=== PATIENT | male | born 1960 | race Asian ===

== ENCOUNTER 2024-06-19 11:13 | Outpatient (AMB) | payer OTHER, SELFPAY ==
--- NOTE | 2024-06-19 11:17 | MHC.OFFVIS ---
Vital Signs 06/19/24 11:23 Height 5 ft 4 in Weight 155 lb 10.342 oz BMI 26.7 BP 136/88 Blood Pressure Location Rt brachial Position Sitting Pulse 68 Pulse Source Pulse Oximeter Pulse Oximetry (%) 96 Oxygen Delivery Method Room Air Intake Visit Reasons: Colonoscopy Screening Intake Note: NEW PATIENT Jacoby presents in office today for a scheduled initial assessment / colo scrn. Prior hx of colo/egd? 2011 (polyps reported per referral, unspecified.) Pt has also had EGD as of 2020 via [facility]? Pt saw GI at [facility] within the last year? Pt states that he was not satisfied with the results that he received from other GIs, therefore, he is being evaluated by us for second opinion. Pt states that his last colo was 5-7 years ago. Pt states that this was performed through [facility]. Polypectomy performed. Meds and Allergies reviewed? Y Any significant concerns or questions? Pt has dietary questions but also is experiencing abd cramping, diarrhea, distention, bloating. Pt states that he has recently cut out alcohol which he states has helped but has not resolved the issue. Pharmacy verified? [facility]. Chief Operating Officer Required: No Allergies No Known Allergies Allergy (Verified 06/18/24 11:46) HPI HPI Colonoscopy Screening: Details: 63 year old? male with past medical history of IBS, GERD, dyspepsia and diverticulosis is here today for 2nd opinion. Patient was seen by GI at [facility] back in August. Started with frequent postprandial loose stools, bloating and cramping. Had colonoscopy in 2019 and was told to repeat in 10 years. Patient requested to have another colonoscopy as his symptoms got worse specially in the last year or so. Patient change his diet no longer is eating certain food and still continues with symptoms. Patient denies any nausea or vomiting. Patient reports that his daughter was diagnosed with Crohn's disease. Patient denies any melena, hematochezia, unintentional weight loss or ribbon like stools. Patient reports acid reflux with occasional dyspepsia without dysphagia or odynophagia. Epigastric pain postprandially depending on what he eats. Patient no longer drinking hard liquor as this was causing him epigastric pain as well. [facility] Medical History (Updated 06/19/24 @ 13:32 by Vira Bonilla, BOBBIN FIXER-) Family history of Crohn's disease Diverticulosis GERD (gastroesophageal reflux disease) Physical Exam Vital Signs: Last Vital Signs Pulse 68 06/19/24 11:23 BP 136/88 06/19/24 11:23 Pulse Ox 96 06/19/24 11:23 Oxygen Delivery Method Room Air 06/19/24 11:23 BMI result Body Mass Index 26.7 Assessment & Plan Assessment & Plan (1) GERD (gastroesophageal reflux disease): Code(s): K21.9 - Gastro-esophageal reflux disease without esophagitis Category: Medical Qualifiers: Esophagitis presence: esophagitis presence not specified Qualified Code(s): K21.9 - Gastro-esophageal reflux disease without esophagitis (2) Diverticulosis: Code(s): K57.90 - Diverticulosis of intestine, part unspecified, without perforation or abscess without bleeding Category: Medical (3) Family history of Crohn's disease: Code(s): Z83.79 - Family history of other diseases of the digestive system Category: Medical (4) Postprandial diarrhea: Code(s): K52.9 - Noninfective gastroenteritis and colitis, unspecified (5) Postprandial epigastric pain: Code(s): R10.13 - Epigastric pain Plan Message sent to surgical schedulers to book procedure for patient. Will rule out inflammatory bowel disease. H pylori testing done in the office. Patient reports that he never was retested after treatment. Continues with epigastric pain. He will go for upper endoscopy to rule out gastritis, esophagitis, duodenitis, gastric or peptic ulcer. Will check lipase and transglutaminase as well as vitamin-D, B12 and folate. Thyroid study ordered as well. Patient follow-up in the office in 3 months, sooner on as needed basis. He is agreeable to this plan and verbalizes understanding of instructions. He was given the opportunity to ask questions and all questions answered. Records from [facility] reviewed. Last visit with GI specialty from 09/01/2023 Thank you for allowing me to participate in his care Orders: Orders C Reactive Protein Today K58.9 - Irritable bowel syndrome, unspecified Lipase Today R10.9 - Unspecified abdominal pain Vitamin D 25-OH (D2 and D3) Today E55.9 - Vitamin D deficiency, unspecified H Pylori Breath Test Today K21.9 - Gastro-esophageal reflux disease without esophagitis Transglutaminase IgA Today R10.9 - Unspecified abdominal pain TSH reflex Free T4 Today K59.00 - Constipation, unspecified Vitamin B12 and Folate Today R19.7 - Diarrhea, unspecified Medications: New famotidine (Pepcid) 20 mg PO BEDTIME 30 tabs 3RF K21.9 - Gastro-esophageal reflux disease without esophagitis Coding Level of Care Code New Pt Level 4 (87853) Diagnoses Gastroesophageal reflux disease, unspecified whether esophagitis present K21.9 Esophagitis presence: esophagitis presence not specified Diverticulosis K57.90 Family history of Crohn's disease Z83.79 Postprandial diarrhea K52.9 Postprandial epigastric pain R10.13 Time Spent (min) 45 Comment 30 minutes spent with patient and additional 15 minutes spent reviewing his records
[2024-06-19 11:23] VITALS: BP 136/88; PULSE 68; O2SAT 96; BMI 26.7
--- OUTSIDE RECORDS SUMMARY | 2024-06-20 01:34 | XMS_ITS | Continuity of Care Document ---
Author Organization [facility] Primary [address] Address [address] [place] [address]- Care Team Providers Care Sustain Engineer Name Role Phone Jesus Cintron MD Primary Care Physician [phone] [id number] Date(s): 05/17/24 - 06/16/24 [facility] [place] [address] [place], [place] [address] Encounter Type: Triage Allergies, Adverse Reactions, Alerts No Known Allergies Medications losartan 50 mg oral tablet 1 tablet = 50 mg, By Mouth, Daily, # 90 tablet, 0 Refills, Maintenance, 05/17/24 6:34:00 PM EST, Tablet, [id number], Partial fill upon patient request if the prescription is for a schedule IIopioid drug., 165, cm, 01/22/24 8:08:00 EDT, Height Start Date: 05/17/24 Status: Ordered Quantity: 90.0 Unit: tablet Repeat number: 1 methylphenidate 5 mg oral tablet 5 mg, 1, tablet, By Mouth, 3 times a day, # 90 tablet, Refills 0, Tot. Refills 0, Maintenance, 01/22/24 8:51:00 AM EDT, Route to Pharmacy Electronically, [id number], Partial fill upon patientrequest if the prescription is for a schedule II opioid drug., 165, cm, 01/22/24 8:08:00 EDT, Height Start Date: 01/22/24 Status: Ordered Quantity: 90.0 Unit: tablet Repeat number: 1 Indication: Attention-deficit hyperactivity disorder, unspecified type sildenafil 100 mg oral tablet 1 tablet = 100 mg, By Mouth, Daily, 1 hour before sexual activity, # 90 tablet, 1 Refills, Maintenance, 01/22/24 8:52:00 AM EDT, Tablet, [facility], Partial fill upon patient request if the prescription is for a schedule II opioid drug., 165, cm, 01/22/24 8:08:00 EDT, Height Start Date: 01/22/24 Stop Date: 07/20/24 Status: Ordered Quantity: 90.0 Unit: tablet Repeat number: 2 Indication: Erectile dysfunction due to diseases classified elsewhere Problem List Condition Confirmation Course Effective Dates Status H ealth Status Informant Alcohol abuse Confirmed Active Anal fissure Confirmed Active ADHD Confirmed Active Benign colonic polyp Confirmed Active Carpal tunnel syndrome of right wrist Confirmed Active Depression, unspecified Confirmed Active Essential hypertension Confirmed Active Family history of Alzheimer's disease Confirmed Active GERD (gastroesophageal reflux disease) Confirmed Active Gluten intolerance Confirmed Active Helicobacter pylori [H. pylori] as the cause of diseases classified elsewhere Confirmed Active IBS (irritable bowel syndrome) Confirmed Active Lateral epicondylitis, right elbow Confirmed Active Maxillary sinusitis Confirmed Active Memory loss or impairment Confirmed Active Mixed hyperlipidemia Confirmed Active Moderate asthma Confirmed Active Osteoarthritis of left hand Confirmed Active Thenar muscle atrophy of left hand Confirmed Active Libido, decreased Confirmed Active Rupture of Achilles tendon, traumatic Confirmed Active Erectile disorder due to medical condition in male Confirmed Active Sleep apnea Confirmed Active Sleep disorder Confirmed Active Social History Social History Type Response Tobacco Use: 4 or less cigar ettes(less than 1/4 pack)/day in last 30 days. Other: socially. Sex Sex Representation Male (finding) Patient Care team information Care Team Personnel Name: Jesus Cintron MD Position: [facility] Physician - Primary Care Member Role: PCP Address: [address] [place] [address] [place] [address] [place] Telecom: Care Team Related Persons Name: SHARIF ARMAS Insurance Providers Guarantor name: CHRISTINE Health Plan Information #: 1 Payer: [employer] FF NON P HMO Member Number: NA Policy Number: NA Group Number: NA
--- OUTSIDE RECORDS SUMMARY | 2024-06-20 01:34 | XMS_ITS | Continuity of Care Document ---
Author Organization [facility] [address] Address [address] [place] [address]- Care Team Providers Care Tugboat Mate Name Role Phone Jesus Cintron MD Primary Care Physician Encounter [facility] NBR [id number] Date(s): 05/17/24 - 06/16/24 [facility] [place] [address] [place], [place] [address] Encounter Type: Triage Allergies, Adverse Reactions, Alerts No Known Allergies Medications losartan 50 mg oral tablet 1 tablet = 50 mg, By Mouth, Daily, # 90 tablet, 0 Refills, Maintenance, 05/17/24 6:34:00 PM EST, Tablet, [facility], Partial fill upon patient [...] 8:51:00 AM EDT, Route to Pharmacy Electronically, [facility] # [facility], Partial fill upon patientrequest [...] Team Personnel Name: Jesus Cintron MD Position: [facility] Physician - Primary Care Member Role: PCP Address: [address] [place] [address] [place] [address] [place] Telecom: Care Team Related Persons Name: SHARIF ARMAS Insurance Providers Guarantor name: CHRISTINE Health Plan Information #: 1 Payer: [employer] FF NON P HMO Member Number: NA Policy Number: NA Group Number: NA
--- OUTSIDE RECORDS SUMMARY | 2024-06-20 01:34 | XMS_ITS ---
Author Organization [facility] Address [address] [facility] [address] [place] [address] Care Team Providers Care Pipe Supervisor Name Role Phone JUAN BUSH Primary Care Provider REASON FOR VISIT refill Medications Medication SIG (Take, Route, Frequency, Duration) Notes Start Date End Date Status Losartan Potassium 50 MG 1 tablet Orally Once a day for 90 days Active Encounters Encounter Location Date Provider Diagnosis [facility] [address] [address] [facility] [address] [place] [address] 03/21/2023 JUAN BUSH Plan Of Treatment Medication Medication Name Sig Start Date Stop Date Notes Losartan Potassium 50 MG 1 tablet Orally Once a day for 90 days Progress Notes * Sha LORENZANALibbyOB:1960 (62 yo M)Acc No.[id number]:03/21/2023 Patient:?Jacoby Lorenzana :1960???Age:62 Y???Sex:Male Address:[address], [place], [address] * Refills? Refill Losartan Potassium Tablet, 50 MG, Orally, 90 Tablet, 1 tablet, Once a day, 90 days, Refills=1 * true * Date:? Generated for Bry ceja/Lexi/eTransmitting on:?06/20/2024 01:34 AM EST
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
--- OUTSIDE RECORDS SUMMARY | 2024-06-20 01:35 | XMS_ITS ---
Author Name [facility] Organization Unknown History of Medication Use Medication Directions Dispensed Refills Start Date End Date Stat us meloxicam (MOBIC) 15 MG tablet Take 1 tablet (15 mg total) by mouth daily. 08/19/2023 active Problems Problem Status Onset Date Problem Type Date of Resoluti on Source Pain in both knees, unspecified chronicity active EncounterDiagnosisAct CCT
--- OUTSIDE RECORDS SUMMARY | 2024-06-20 01:35 | XMS_ITS | Patient Health Record ---
Author Organization [facility] Address [address] [place] [id number] Care Team Providers Care Intramural Director Name Role Phone JUAN BUSH Primary Care Provider Allergies No Known Allergies Reason For Referral No Information Medications Medication SIG (Take, Route, Frequency, Duration) Notes Start Date End Date Status traZODone HCl 50 MG 1 tablet at bedtime as needed Orally at bedtime for 90 days 10/03/2018 Not-Taking Cephalexin 500 MG Oral Twice daily for 7 TAKE 1 CAPSULE TWICE DAILY. 07/08/2015 Not-Taking Prevpac - TAKE DIRECTED Orally BID for 14 days 06/01/2020 Not-Taking Losartan Potassium 50 MG 1 tablet Orally Once a day for 90 days Active Lansoprazole 30 MG 1 capsule before a meal Orally Twice a day for 14 days 06/02/2020 Active Losartan Potassium-HCTZ 50-12.5 MG 1 tablet Orally Once a day for 90 days 03/31/2016 Not-Taking Ciprodex 0.3-0.1 % Otic Twice daily for 0 INSTILL 3 DROPS IN AFFECTED EAR(S) TWICE DAILY. 07/08/2015 Not-Taking Losartan Potassium 100 MG 1 tablet Orally Once a day for 90 day(s) 05/12/2016 Not-Taking Immunizations Vaccine Route Administration Date Status Comme nts DTaP IM Intramuscular 10/18/2011 Administered MIG_SI D-Immunization Date :18Oct2011 03:02PM Social History Tobacco Use: Social History Observation [...] Are you an other tobacco user? Yes Section Notes: Marital Hx: Got to Nevaeh Laughlin at age 28 yr She was 18 and a beauty pageant [employer] Dated and got at age 28 yr . 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 [employer] Lives in [place] with son Gerrado born with cleft lip. 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 [employer] on [employer]. Remarried Feb 20 2005 to Katherine . She rodriguez 3 children ANPU Randolph, Adin frazier Pharmacist(my pt) and Viky Parker(psychologist) Upset as daughter Silvana 26 yr from first Nevaeh Laughlin ( her Isael is Frank De La Cruz brother)is getting and is not asking him to walk her to the aisle. Complaining of decreased concentration and short term memeory loss. Has Alzheimers in father, his sister and his father. They all from AZD. His father 2016 from dementia.. Lives with his mother. Sisters and brother have hyperthyroidism.2 sister and brother had cerebral vascular malformation and had surgery All had headaches Marital Hx: Got to Nevaeh Laughlin at age 28 yr She was 18 and a beauty pageant [employer] Dated and got at age 28 yr . 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 [employer] Lives in [place] with son Gerardo born with cleft lip. 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 [employer] on [address]. Remarried Feb 20 2005 to Katherine . She rodriguez 3 children ANUP Randolph, Adin frazier Pharmacist(my pt) and Viky Parker(psychologist) Upset as daughter Silvana 26 yr from first Nevaeh Laughlin ( her Isael is Frank De La Cruz brother)is getting and is not asking him to walk her to the aisle. Complaining of decreased concentration and short term memeory loss. Has Alzheimers in father, his sister and his father. They all from AZD. His father 2016 from dementia.. Lives with his mother. Sisters and brother have hyperthyroidism.2 sister and brother had cerebral vascular malformation and had surgery All had headaches Marital Hx: Got to Nveaeh Laughlin at age 28 yr She was 18 and a beauty pageant [employer] Dated and got at age 28 yr . 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 [employer] Lives in [place] with son Gerardo born with cleft lip. 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 [employer] on [employer]. Remarried Feb 20 2005 to Katherine . She rodriguez 3 children ANUP Randolph, Adin frazier Pharmacist(my pt) and Viky Parker(psychologist) Upset as daughter Silvana 26 yr from first Nevaeh Laughlin ( her Isael is Frank De La Cruz brother)is getting and is not asking him to walk her to the aisle. Complaining of decreased concentration and short term memeory loss. Has Alzheimers in father, his sister and his father. They all from AZD. His father 2016 from dementia.. Lives with his mother. Sisters and brother have hyperthyroidism.2 sister and brother had cerebral vascular malformation and had surgery All had headaches Marital Hx: Got to Nevaeh Laughlin at age 28 yr She was 18 and a beauty pageant [employer] Dated and got at age 28 yr . 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 [employer] Lives in [place] with son Gerardo born with cleft lip. 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 [employer] [address]. Remarried Feb 20 2005 to Katherine . She rodriguez 3 children ANUP Randolph, Adin frazier Pharmacist(my pt) and Viky Parker(psychologist) Upset as daughter Silvana 26 yr from first Nevaeh Laughlin ( her Isael is Frank De La Cruz brother)is getting and is not asking him to walk her to the aisle. Complaining of decreased concentration and short term memeory loss. Has Alzheimers in father, his sister and his father. They all from AZD. His father 2016 from dementia.. Lives with his mother. Sisters and brother have hyperthyroidism.2 sister and brother had cerebral vascular malformation and had surgery All had headaches Marital Hx: Got to Nevaeh Laughlin at age 28 yr She was 18 and a beauty pageant [employer] Dated and got at age 28 yr . 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 [employer] Lives in [place] with son Gerardo born with cleft lip. 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 [employer] [address]. Remarried Feb 20 2005 to Katherine . She rodriguez 3 children ANUP Randolph, Adin frazier Pharmacist(my pt) and Viky Parker(psychologist) Upset as daughter Silvana 26 yr from first Nevaeh Laughlin ( her Isael is Frank De La Cruz brother)is getting and is not asking him to walk her to the aisle. Complaining of decreased concentration and short term memeory loss. Has Alzheimers in father, his sister and his father. They all from AZD. His father 2016 from dementia.. Lives with his mother. Sisters and brother have hyperthyroidism.2 sister and brother had cerebral vascular malformation and had surgery All had headaches Upset as daughter Silvana 26 yr from first Nevaeh Laughlin ( her Isael is Frank De La Cruz brother)is getting and is not asking him to walk her to the aisle. Complaining of decreased concentration and short term memeory loss. Has Alzheimers in father, his sister and his father. They all from AZD. His father 2016 from dementia.. Lives with his mother. Sisters and brother have hyperthyroidism.2 sister and brother had cerebral vascular malformation and had surgery All had headaches Upset as daughter Silvana 26 yr from first Nevaeh Laughlin ( her Isael is Frank De La Cruz brother)is getting and is not asking him to walk her to the aisle. Complaining of decreased concentration and short term memeory loss. Has Alzheimers in father, his sister and his father. They all from AZD. His father 2016 from dementia.. Lives with his mother. Sisters and brother have hyperthyroidism.2 sister and brother had cerebral vascular malformation and had surgery All had headaches Upset as daughter Silvana 26 yr from first Nevaeh Laughlin ( her Isael is Frank De La Cruz brother)is getting and is not asking him to walk her to the aisle. Complaining of decreased concentration and short term memeory loss. Has Alzheimers in father, his sister and his father. They all from AZD. His father 2016 from dementia.. Lives with his mother. Sisters and brother have hyperthyroidism.2 sister and brother had cerebral vascular malformation and had surgery All had headaches Upset as daughter Silvana 26 yr from first Nevaeh Laughlin ( her Isael is Frank De La Cruz brother)is getting and is not asking him to walk her to the aisle. Complaining of decreased concentration and short term memeory loss. Has Alzheimers in father, his sister and his father. They all from AZD. His father 2016 from dementia.. Lives with his mother. Sisters and brother have hyperthyroidism.2 sister and brother had cerebral vascular malformation and had surgery All had headaches Upset as daughter Silvana 26 yr from first Nevaeh Laughlin ( her Isael is Frank De La Cruz brother)is getting and is not asking him to walk her to the aisle. Complaining of decreased concentration and short term memeory loss. Has Alzheimers in father, his sister and his father. They all from AZD. His father 2016 from dementia.. Lives with his mother. Sisters and brother have hyperthyroidism.2 sister and brother had cerebral vascular malformation and had surgery All had headaches Upset as daughter Silvana 28 yr from first Nevaeh Laughlin ( her Isael is Frank De La Cruz brother)is getting and is not asking him to walk her to the aisle. Complaining of decreased concentration and short term memeory loss. Has Alzheimers in father, his sister and his father. They all from AZD. His father 2016 from dementia.. Lives with his mother. Sisters and brother have hyperthyroidism.2 sister and brother had cerebral vascular malformation and had surgery All had headaches Upset as daughter Silvana 26 yr from first Nevaeh Laughlin ( her Isael is Frank De La Cruz brother)is getting and is not asking him to walk her to the aisle. Complaining of decreased concentration and short term memeory loss. Has Alzheimers in father, his sister and his father. They all from AZD. His father 2016 from dementia.. Lives with his mother. Sisters and brother have hyperthyroidism.2 sister and brother had cerebral vascular malformation and had surgery All had headaches Upset as daughter Silvana 26 yr from first Nevaeh Laughlin ( her Isael is Frank De La Cruz brother)is getting and is not asking him to walk her to the aisle. Complaining of decreased concentration and short term memeory loss. Has Alzheimers in father, his sister and his father. They all from AZD. His father 2016 from dementia.. Lives with his mother. Sisters and brother have hyperthyroidism.2 sister and brother had cerebral vascular malformation and had surgery All had headaches Upset as daughter Silvana 26 yr from first Nevaeh Laughlin ( her Isael is Frank De La Cruz brother)is getting and is not asking him to walk her to the aisle. Complaining of decreased concentration and short term memeory loss. Has Alzheimers in father, his sister and his father. They all from AZD. His father 2016 from dementia.. Lives with his mother. Sisters and brother have hyperthyroidism.2 sister and brother had cerebral vascular malformation and had surgery All had headaches Upset as daughter Silvana 26 yr from first Nevaeh Laughlin ( her Isael is Frank De La Cruz brother)is getting and is not asking him to walk her to the aisle. Complaining of decreased concentration and short term memeory loss. Has Alzheimers in father, his sister and his father. They all from AZD. His father 2016 from dementia.. Lives with his mother. Sisters and brother have hyperthyroidism.2 sister and brother had cerebral vascular malformation and had surgery All had headaches Upset as daughter Silvana 26 yr from first Nevaeh Laughlin ( her Isael is Frank De La Cruz brother)is getting and is not asking him to walk her to the aisle. Complaining of decreased concentration and short term memeory loss. Has Alzheimers in father, his sister and his father. They all from AZD. His father is alive and is 82 yrs. Lives with his mother. Sisters and brother have hyperthyroidism.2 sister and brother had cerebral vascula malformation and had surgery All had headaches Upset as daughter Silvana 26 yr from first Nevaeh Laughlin ( her Isael is Frank De La Cruz brother)is getting and is not asking him to walk her to the aisle. Complaining of decreased concentration and short term memeory loss. Has Alzheimers in father, his sister and his father. They all from AZD. His father is alive and is 82 yrs. Lives with his mother. Sisters and brother have hyperthyroidism.2 sister and brother had cerebral vascula malformation and had surgery All had headaches Upset as daughter Silvana 26 yr from first Nevaeh Laughlin ( her Isael is Frank De La Cruz brother)is getting and is not asking him to walk her to the aisle. Complaining of decreased concentration and short term memeory loss. Has Alzheimers in father, his sister and his father. They all from AZD. His father 2016 from dementia.. Lives with his mother. Sisters and brother have hyperthyroidism.2 sister and brother had cerebral vascular malformation and had surgery All had headaches Upset as daughter Silvana 26 yr from first Nevaeh Laughlin ( her Isael is Frank De La Cruz brother)is getting and is not asking him to walk her to the aisle. Complaining of decreased concentration and short term memeory loss. Has Alzheimers in father, his sister and his father. They all from AZD. His father 2016 from dementia.. Lives with his mother. Sisters and brother have hyperthyroidism.2 sister and brother had cerebral vascular malformation and had surgery All had headaches Upset as daughter Silvana 26 yr from first Nevaeh Laughlin ( her Isael is Frank De La Cruz brother)is getting and is not asking him to walk her to the aisle. Complaining of decreased concentration and short term memeory loss. Has Alzheimers in father, his sister and his father. They all from AZD. His father 2016 from dementia.. Lives with his mother. Sisters and brother have hyperthyroidism.2 sister and brother had cerebral vascular malformation and had surgery All had headaches Upset as daughter Silvana 26 yr from first Nevaeh Laughlin ( her Isael is Frank De La Cruz brother)is getting and is not asking him to walk her to the aisle. Complaining of decreased concentration and short term memeory loss. Has Alzheimers in father, his sister and his father. They all from AZD. His father 2016 from dementia.. Lives with his mother. Sisters and brother have hyperthyroidism.2 sister and brother had cerebral vascular malformation and had surgery All had headaches Upset as daughter Silvana 26 yr from first Nevaeh Laughlin ( her Isael is Frank De La Cruz brother)is getting and is not asking him to walk her to the aisle. Complaining of decreased concentration and short term memeory loss. Has Alzheimers in father, his sister and his father. They all from AZD. His father 2016 from dementia.. Lives with his mother. Sisters and brother have hyperthyroidism.2 sister and brother had cerebral vascular malformation and had surgery All had headaches Marital Hx: Got to Nevaeh Laughlin at age 28 yr She was 18 and a beauty pageant [employer] Dated and got at age 28 yr . 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 Lives in [place] with son Gerardo born with cleft lip. 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 [employer] on [employer]. Remarried Feb 20 2005 to Katherine . She rodriguez 3 children ANUP Randolph, Adin frazier Pharmacist(my pt) and Viky Parker(psychologist) Upset as daughter Silvana 26 yr from first Nevaeh Laughlin ( her Isael is Frank De La Cruz brother)is getting and is not asking him to walk her to the aisle. Complaining of decreased concentration and short term memeory loss. Has Alzheimers in father, his sister and his father. They all from AZD. His father 2016 from dementia.. Lives with his mother. Sisters and brother have hyperthyroidism.2 sister and brother had cerebral vascular malformation and had surgery All had headaches Upset as daughter Silvana 26 yr from first Nevaeh Laughlin ( her Isael is Frank De La Cruz brother)is getting and is not asking him to walk her to the aisle. Complaining of decreased concentration and short term memeory loss. Has Alzheimers in father, his sister and his father. They all from AZD. His father 2015 from dementia.. Lives with his mother. 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 However he has noticed bloating and epigastric discomfort for past 2-3 days Discussed with him the possibilty of resistance to the previous treatment . He is agreeable to start on another course for salvage therapy. Reviewed [email or web address] Textbook. Decided to wait for a couple of weeks, get Urea breath test or stool antigen test and if positive, treat with Levofloxacin based theerapy with amoxillin and PPI. I called him and discussed He is drinking [place] for 4 days Told to use Probiotics Wants to wait 4 weeks and then will see me on televist Problem 4282179 Helicobacter pylori [H. pylori] as the cause of diseases classified elsewhere (B96.81) Active confirmed 06/01/20- suspected from symptoms and history. will be difficult to get breath test, prefers to be treated empericaly patient going to get H. Pylori antibody test completed and Prevpac prescribed. Also will order labs to check inflammatory markers to rule out autoimmune causes. Follow up in 3 weeks to determine if prevpac working. If no improvement will treat for IBS, the will refer to GI 4.30 pm Labs came back Had H. Pylori positive antibody Will call him and let him know. 06/23/2020- reinfection, initial treatment failure. will start patient on next round of medications. follow up in 1 month 02/24/21 States he feels he has the same symptoms Wants to try Prevpak again Sent to [facility]. 07/14/21 Had EGD on 07/01/21 and started again on Prevpak on 07/12/21 4th time he has been treated! Problem Mixed hyperlipidemia (766837909) Mixed hyperlipidemia (E78.2) Active confirmed Problem Otitis media (92461723) Otitis media, unspecified, unspecified ear (H66.90) Active confirmed Problem 639762972842999 Lateral epicondylitis, right elbow (M77.11) Active confirmed Will start on Meloxicam for 3 weeks Will call me if not better Problem 18204195 Insect bite (nonvenomous) of abdominal wall, initial encounter (S30.861A) Active confirmed Will give Doxycycline 1000 mg single dose today Problem 746392169 Bitten or stung by nonvenomous insect and other nonvenomous arthropods, initial encounter (W57.XXXA) Active confirmed Problem 322683784 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) Active confirmed Problem 29461369 Alcohol abuse (F10.10) Active confirmed Problem Gastroesophageal reflux disease (532323423) GERD (gastroesophage al reflux disease) (K21.9) Active confirmed Problem 10011154 Sleep disorder (G47.9) Active confirmed Uses Trazadone prn 06/01/2020- doing well, no issues with sleep currently, intermitent throughut life Problem 125774969 Erectile disorder due to medical condition in male (N52.1) Active confirmed Will give sildenafil vis [facility] from [facility] Problem Gluten intolerance (3889789227) Gluten intolerance (K90.0) Active confirmed Problem 1523717033769275 Left ear pain (H92.02) Active confirmed Will ask patient to come in for a physical check Problem 33612575 Essential hypertension (I10) Active confirmed Started on Losartan Not compliant Urged him to do so Problem 2558707 Libido, decreased (R68.82) Active confirmed Problem 556119313 Benign colonic polyp (K63.5) Active confirmed Had colonoscopy at age [address] Martinez Will need another one Problem 581692472 Annual physical exam (Z00.00) Active confirmed In good health . Labs done i Aug 2019 Excellent . No new issues Probably had Covid infection in September. 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 Will try venlafaxine and will refer to [facility] for [facility]selling and see me in 2-3 weeks Told to abstain from alcohol. Stopped alcohol and has lost weight Problem 27294845 Carpal tunnel syndrome of right wrist (G56.01) Active confirmed Problem Shoulder joint pain (427057202) Left shoulder pain, unspecified chronicity (M25.512) Active confirmed Saw Dr Govea in November 2015 Told he will need arthroscopic surgery to clean up the calcium and repair the rotator cuff Plans to have it done this year. 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 Never took inhalers and not diagnosed Problem 416489628018796 Osteoarthritis of left hand, unspecified osteoarthritis type (M19.042) Active confirmed Had EMG and NCV done by Dr Kumar. No neuropathy. All from OA. Problem 631744727 History of essential hypertension (Z86.79) Active confirmed Was noncompliant Off meds for months . I have decided to stop his meds and take off the diagnoses of HTN as his BP was 120/85 He has excellent HDL of 129 and no family history of CAD and HTB or CVA Leads a very physical lifestyle Problem 505627064 Memory loss or impairment (R41.3) Active confirmed Has noticed it Cannot remeber names , faces of people. Has to keep notes Agrees to be tested. Problem 02363160107538085 Bacterial conjunctivitis of right eye (H10.9) Active confirmed Will give antibiotics locally and orally. Problem 86968494 Maxillary sinusitis, unspecified chronicity (J32.0) Active confirmed Will treat with cephalexin Problem 430142709 Acute back pain, unspecified back location, unspecified back pain laterality (M54.9) Active confirmed Will gve percocets and cyclobenzapri ne.. Got scripts but didnt use it . No time to work out Told to get up early and go to the gym and start his work out. Problem 61669574 Left otitis media with effusion (H65.92) Active confirmed Will treat with medrol and ABX and cough syrup. Problem Disease caused by Severe acute respiratory syndrome coronavirus 2 (disorder) (899276942) COVID-19 determined by clinical diagnostic criteria (U07.1) Active confirmed 07/14/21 Symptomatic since 07/11/21 . Congested and coughing but afebrile Not short of breath Eas exposed to Covid positive friends. On antibiotics for his H. Pylori infection Will get a pulse oximeter and monitor his O2 level. Will check on him tomorrow. 07/15/21 feeling much better since yesterday, cough still productive but not as severe, oxygen 95% picked up oxygen monitor. he will continue to stay away from o not get her sick. 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 feeling much better. advised to continue monitoring oxygen however, if change or declining to call the office. of oxygen below 90s to seek ed Plan Of Treatment Pending Test Test Name Order Date X ray : Hand, left 08/22/2016 X ray : Hand, right 08/22/2016 Lipid Panel 11/23/2021 Chem-Comprehensive 11/23/2021 H PYLORI BREATH TEST 10/07/2022 CBC WITH AUTO DIFF 10/07/2022 COMPREHENSIVE METABOLIC PANEL 10/07/2022 HEPATITIS C VIRUS SCREEN 10/07/2022 LIPID PROFILE 10/07/2022 MEASLES PROFILE 10/07/2022 URINALYSIS 10/07/2022 PSA, SCREEN 10/07/2022 URINALYSIS, COMPLETE 11/23/2021 Future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
== END 2024-06-19 12:46 | disposition home or self-care (01) ==
PROVIDERS: PCP Internal Medicine; Visit Provider Nurse Practitioner Family
DX: K21.9 Gastro-esophageal reflux disease without esophagitis (principal); K57.90 Diverticulosis of intestine, part unspecified, without perforation or abscess without bleeding; Z83.79 Family history of other diseases of the digestive system; K52.9 Noninfective gastroenteritis and colitis, unspecified; R10.13 Epigastric pain
CPT/HCPCS: 99204

== ENCOUNTER 2024-06-19 11:13 | Outpatient (REF) | payer OTHER, SELFPAY ==
[2024-06-19 13:55] LABS: C Reactive Protein < 0.10 mg/dL (< or = 0.50); Lipase 71 U/L (8-78)
[2024-06-19 14:15] LABS: TSH reflex Free T4 2.32 uIU/mL (0.32-4.0)
[2024-06-19 14:26] LABS: Folate 12.8 ng/mL (> or = 4.0); Vitamin B12 344 pg/mL (200-900)
[2024-06-20 15:49] LABS: Transglutaminase IgA <1.0 U/mL
[2024-06-23 17:29] LABS: Vitamin D 25-OH, D2 <4 ng/mL; Vitamin D 25-OH, D3 32 ng/mL; Vitamin D 25-OH, Total 32 ng/mL (30-100)
== END 2024-06-19 11:14 | disposition home or self-care (01) ==
LOC: HO.LAB 11:13
PROVIDERS: PCP Internal Medicine; Visit Provider Nurse Practitioner Family
DX: R10.9 Unspecified abdominal pain (principal); E55.9 Vitamin D deficiency, unspecified; K59.00 Constipation, unspecified; K58.9 Irritable bowel syndrome, unspecified; R19.7 Diarrhea, unspecified
CPT/HCPCS: 36415; 82306; 82607; 82746; 83013; 83690; 84443; 86140; 86364

== ENCOUNTER 2024-09-09 10:18 | Outpatient (AMB) | payer OTHER, SELFPAY ==
--- NOTE | 2024-09-09 10:20 | A.OFFVIS_ITS ---
Vital Signs 09/09/24 10:29 Height 5 ft 4 in Weight 162 lb 11.218 oz BMI 27.9 BP 144/92 H Blood Pressure Location Rt brachial Position Sitting Pulse 58 Pulse Source Pulse Oximeter Pulse Oximetry (%) 97 Oxygen Delivery Method Room Air Intake Visit Reasons: 3 mos FUV Intake Note: ESTABLISHED PATIENT for GERD mgmt. Re address colo/egd. Chief Complaint; Pt denies any GI concerns at this time. Pt states that his GERD is well controlled with diet and he has stopped taking the famotidine. No additional notes at this time. Coupler Required: No Accompanied by: Self / Same As Patient Allergies No Known Allergies Allergy (Verified 09/09/24 10:22) HPI HPI 3 mos FUV: Details: LAST VISIT GERD (gastroesophageal reflux disease) Diverticulosis Family history of Crohn's disease Postprandial diarrhea Postprandial epigastric pain Plan Message sent to surgical schedulers to book procedure for patient. Will rule out inflammatory bowel disease. H pylori testing done in the office. Patient reports that he never was retested after treatment. Continues with epigastric pain. He will go for upper endoscopy to rule out gastritis, esophagitis, duodenitis, gastric or peptic ulcer. Will check lipase and transglutaminase as well as vitamin-D, B12 and folate. Thyroid study ordered as well. Patient follow-up in the office in 3 months, sooner on as needed basis. He is agreeable to this plan and verbalizes understanding of instructions. He was given the opportunity to ask questions and all questions answered. ? Records from [facility] reviewed. Last visit with GI specialty from 09/01/2023 ? Thank you for allowing me to participate in his care Orders Orders C Reactive Protein Today K58.9 Lipase Today R10.9 Vitamin D 25-OH (D2 and D3) Today E55.9 H Pylori Breath Test Today K21.9 Transglutaminase IgA Today R10.9 TSH reflex Free T4 Today K59.00 Vitamin B12 and Folate Today R19.7 Medications New famotidine (Pepcid) 20 mg PO BEDTIME 30 tabs 3RF K21.9 TODAY'S VISIT Patient is here today for follow-up and to discuss going for colonoscopy and upper endoscopy. Patient reports that he stops taking the famotidine as it was making him feel worse. Patient reports that he changed his diet and is feeling better. Occasional acid reflux depending on what he eats. Patient is trying to stay away from culprits. No issues with anesthesia in the past. No history of sleep apnea. Not on any anticoagulation medication. No family history of CRC. Lost colonoscopy over 5 years ago. [facility] Medical History Family history of Crohn's disease Diverticulosis GERD (gastroesophageal reflux disease) Review of Systems Const Denies weight gain and Denies weight loss ENT Reports no additional complaints, Denies dysphagia and Denies odynophagia Card Reports no additional complaints Resp Reports no additional complaints GI Denies abdominal pain, Denies belching, Denies melena, Denies bloating, Denies change in bowel habits, Denies dysphagia, Denies excessive flatus, Denies dyspepsia, Denies heartburn, Denies diarrhea, Denies loose stools, Denies nausea, Denies odynophagia and Denies vomiting Reports no additional complaints Musc Reports no additional complaints Neuro Reports no additional complaints Psych Reports no additional complaints Endo Reports no additional complaints Physical Exam Const General: healthy appearing, no acute distress and well developed Nutritional Appearance: well nourished Orientation/consciousness: patient oriented x3 Resp Effort & Inspection: normal respiratory effort, able to speak in complete sentences, no tracheal deviation and symmetric chest movement Auscultation: clear to auscultation bilaterally Cardio Rate: regular rate GI Inspection: Yes normal to inspection and No distended Palpation (GI): Soft to palpation, not firm, nontender and No hepatosplenomegaly present Auscultation: normal bowel sounds General: Yes no CVA tenderness Back/Spine/Pelvis Back: no CVA tenderness Skin General skin exam: elasticity normal, turgor normal and dry skin Neuro General: patient oriented x3 Psych Appearance: grossly normal Mental Status: mental status grossly normal Results Reviewed Results Reviewed: Laboratory Tests 06/19/24 12:52 C-Reactive Protein < 0.10 Lipase 71 Vitamin B12 344 25-OH Vitamin D Total 32 Folate 12.8 TSH 2.32 Tiss Transglutamin IgA <1.0 Assessment & Plan Assessment & Plan (1) GERD (gastroesophageal reflux disease): Code(s): K21.9 - Gastro-esophageal reflux disease without esophagitis Category: Medical Qualifiers: Esophagitis presence: esophagitis presence not specified Qualified Code(s): K21.9 - Gastro-esophageal reflux disease without esophagitis (2) Diverticulosis: Code(s): K57.90 - Diverticulosis of intestine, part unspecified, without perforation or abscess without bleeding Category: Medical (3) Family history of Crohn's disease: Code(s): Z83.79 - Family history of other diseases of the digestive system Category: Medical (4) Postprandial diarrhea: Code(s): K52.9 - Noninfective gastroenteritis and colitis, unspecified (5) Postprandial epigastric pain: Code(s): R10.13 - Epigastric pain Plan Labs discussed with patient, normal. Continue avoiding dietary triggers and late night snacking. Staying upright for minimum 3 hours after meals discussed with patient. Patient will be sent for upper endoscopy. Patient will be sent for colonoscopy as well. Denies any issues with anesthesia in the past. No history of sleep apnea. Not on any anticoagulation medication. Patient denies any cardiac or respiratory symptoms. What to expect before during and after p rocedure discussed with patient. Patient will be seen after the procedure. Patient was encouraged to call the office if he will have any GI concerning symptoms. He is agreeable to this plan and verbalizes understanding of instructions. He was given the opportunity to ask questions and all questions answered. Thank you for allowing me to participate in her care Coding Level of Care Code Est Pt Level 3 (58692) Diagnoses Gastroesophageal reflux disease, unspecified whether esophagitis present K21.9 Esophagitis presence: esophagitis presence not specified Diverticulosis K57.90 Family history of Crohn's disease Z83.79 Postprandial diarrhea K52.9 Postprandial epigastric pain R10.13 Time Spent (min) 30 Comment 20 minutes spent with patient and additional 10 minutes spent reviewing his records
[2024-09-09 10:29] VITALS: BP 144/92; PULSE 58; O2SAT 97; BMI 27.9
--- OUTSIDE RECORDS SUMMARY | 2024-09-09 11:53 | XMS_ITS | Clinical Summary ---
Author Organization [facility] Address [address] [place] [address] Care Team Providers Care Yeast Culture Developer Name Role Phone Jesus Cintron MD Primary Care Provider [phone] Surgical History Surgery Date Site/Laterality Comments COLONOSCOPY 09/16/2019 PROCEDURE: HISTORICAL COLONOSCOPY; COMMENT: Dr. Prabhakar -hemorrhoids, sigmoid diverticulosis, redundant colon. ROTATOR CUFF REPAIR 2016 PROCEDURE: HISTORICAL ROTATOR CUFF REPAIR; COMMENT: right OTHER SURGICAL HISTORY PROCEDURE: [place] CURTG/CAUT ANAL FISSURE W/DILAT SPHNCTR SPX SBSQ; COMMENT: Dr. Prabhakar HAND SURGERY PROCEDURE: HISTORICAL HAND SURGERY; COMMENT: left Medical History Medical History Date Comments Essential (primary) hypertension DX:Essential (primary) hypertension GERD (gastroesophageal reflux disease) DX:GERD (gastroesophageal reflux disease) Insomnia DX:Insomnia Irritable bowel syndrome DX:Irri table bowel syndrome Change in bowel habits DX:Change in bowel habits Passage of loose stools DX:Passa ge of loose stools Family History Medical History Relation Name Comments Brain Aneurysm Brother Diabetes Father Thyroid disease Mother Brain Aneurysm Sister 1 Brain Aneurysm Sister 2 Relation Name Status Comments Brother Father Mother Sister 1 Sister 2 Social History Tobacco Use Types Packs/Day Years Used Date Smoking Tobacco: Never Assessed Sex and Gender Information Value Date Recorded Sex Assigned at Not on file Legal Sex Male 9:16 AM EST Gender Identity Not on file Sexual Orientation Not on file Obstetrics History Last Filed Vital Signs Vital Sign Reading Time Taken Comments Blood Pressure 108/76 09/01/2023 9:16 AM EST Pulse 66 09/01/2023 9:16 AM EST Temperature - - Respiratory Rate - - Oxygen Saturation - - Inhaled Oxygen Concentration - - Weight 69.7 kg (153 lb 9.6 oz) 09/01/2023 9:16 A M EST Height 165.1 cm (5' 5 ) 09/01/2023 9:16 AM EST Body Mass Index 25.56 09/01/2023 9:16 AM EST Plan of Treatment Health Maintenance Due Date Last Done Comments DTaP,Tdap,and Td Vaccines (1 - Tdap) 1981 Hepatitis A Vaccines (1 of 2 - Risk 2-dose series) 1981 Pneumococcal Vaccine: 50+ Ye ars (1 of 2 - PCV) 1981 Pneumococcal Vaccine: Pediat rics (0 to 5 Years) and At-Risk Patients (6 to 64 Years) (1 of 2 - PCV) 1981 Zoster Vaccines (1 of 2) 2012 Cholesterol Screening (Lipid Panel) 06/18/2022 Colorectal Cancer Screening: Colonoscopy 06/18/2022 Depression Screening 06/18/2022 HIV Screening 06/18/2022 Hepatitis C Screening 06/18/2022 Social Influencers of Health Screening 06/18/2022 Hypertension/CHF/CAD Annual BMP Blood Test 06/24/2022 RSV Immunization Patients 60 + Years Old (1 - Risk 60-74 years 1-dose series) 2022 COVID-19 Vaccine ( - 2023-2 5 season) 2024 Influenza Vaccine (#1) 2024 HIB Vaccines Aged Out No longer eligi ble based on patient's age to complete this topic HPV Vaccines Aged Out No longer eligi ble based on patient's age to complete this topic Hepatitis B Vaccines Aged Out No long er eligible based on patient's age to complete this topic IPV Vaccines Aged Out No longer eligi ble based on patient's age to complete this topic MMR Vaccines Aged Out No longer eligi ble based on patient's age to complete this topic Meningococcal ACWY Vaccine Aged Out N o longer eligible based on patient's age to complete this topic Meningococcal B Vacine Aged Out No lo nger eligible based on patient's age to complete this topic RSV Immunization Patients Un cynthia 20 months Aged Out No longer eligible b ased on patient's age to complete this topic Varicella Vaccines Aged Out No longer eligible based on patient's age to complete this topic Care Teams Yeast Culture Developer Relationship Specialty Start Date End Date Jesus Cintron MD PCP - General Internal Medicine 05/10/19
--- OUTSIDE RECORDS SUMMARY | 2024-09-09 11:54 | XMS_ITS | Clinical Summary ---
Author Organization [facility] Address [address] [place] [address] Care Team Providers Care Copyright Manager Name Role Phone Jesus Cintron MD Primary Care Provider [phone] Allergies No known active allergies Medications Medication Sig Dispensed Refills Start Date End Date Status meloxicam (MOBIC) 15 MG tabletIndications:Pain in both knees, unspecified chronicity Take 1 tablet (15 mg total) by mouth daily. 30 tablet 08/15/2023 Active Encounters Date Type Department Care Team Description 06/21/2024 10:05 AM EST Ancillary Procedure [facility] [address] [address] 06/21/2024 9:15 AM EST [facility] [address] [phone] Joo Moore MD Right knee pain, unspecified chronicity (Primary Dx) from Last 3 Months Social History Tobacco Use Types Packs/Day Years Used Date Smoking Tobacco: Never Assessed Sex and Gender Information Value Date Recorded Sex Assigned at Male 08/12/2023 8:51 PM EST Gender Identity Male 08/12/2023 8:51 PM EST Sexual Orientation Choose not to disclose 2023 8:51 PM EST Plan of Treatment Health Maintenance Due Date Last Done Comments Hepatitis C Virus Screening 1960 Pneumococcal Vaccine: Pediat sadiq (0-5 Years) and At-Risk Patients (6 to 49 Years) (1 of 2 - PCV) 1968 HIV Screening 12/14/1975 DTaP/Tdap/Td Vaccines (1 - Tdap) 1981 Pneumococcal Vaccines 50+ (1 of 2 - PCV) 1981 Colonoscopy 12/14/2007 Zoster (Shingles) Vaccine (1 of 2) 2012 Influenza Vaccine 02/08/2024 COVID-19 Vaccine (2023-2 5 season) 2024 RSV Vaccine 60 years and old er and Patients (1 - 1-dose 75+ series) 2037 Hepatitis B Vaccines Aged Out No long er eligible based on patient's age to complete this topic Procedures Procedure Name Priority Date/Time Associated Diagnosis Comments XR KNEE 4+ VIEWS-RIGHT Routine 10:07 AM EST Right knee pain, unspecified chronicity ND ARTHROCENTESIS ASPIR&/INJ MAJOR JT/BURSA W/O US Routine 06/21/2024 9:15 AM EST Right knee pain, unspecified chronicity from Last 3 Months Results * XR Knee 4+ views-Right (06/21/2024 10:07 AM EST) Narrative OAH - 06/21/2024 10:07 AM EST This exam was performed in office at [facility] and images reviewed by orthopedic provider. ??Any findings are documented within ambulatory encounter note on date of service. Joo Moore MD IMG DIAGNOSTIC IMAGING ORDERABLES OAH * ND ARTHROCENTESIS ASPIR&/INJ MAJOR JT/BURSA W/O US (06/21/2024 9:15 AM EST) Narrative Joo Moore MD - 06/21/2024 9:15 AM EST Joo Moore MD ? 06/21/2024 10:18 PM Large Joint Arthrocentesis: R knee on 06/21/2024 9:15 AM Indications: pain Details: 22 G needle, anterolateral approach Medications: 12 mg betamethasone acetate-betamethasone sodium phosphate 6 (3-3) MG/ML Outcome: tolerated well, no immediate complications Procedure note: ??I reviewed with the patient the possible benefits of the injection including diminishing pain and improving function. ??I also discussed the reasonable risks of the injection including, but not limited to, infection, pain, swelling, failure to alleviate symptoms, skin depigmentation, and subcutaneous fat atrophy. ??Diabetic patients may see a transient, but significant elevation in blood glucose levels and are encouraged to watch for this. ??The patient elected to proceed. ??The anterolateral region of the affected knee was prepared with alcohol. Using sterile technique, the knee was injected using a 22 gauge needle with a mixture containing 2cc betamethasone and 3cc's of 0.5% bupivicaine. ??There were no immediate complications noted. ??I instructed the patient to apply ice to the knee for 20 minutes of each hour, several times per day for the next 1-2 days. Procedure, treatment alternatives, risks and benefits explained, specific risks discussed. Consent was given by the patient. Immediately prior to procedure a time out was called to verify the correct patient, procedure, equipment, director of academic support and site/side marked as required. Patient was prepped and draped in the usual sterile fashion. Joo Moore MD PROCEDURE/MINOR SURGICAL ORDERABLES from Last 3 Months Care Teams Copyright Manager Relationship Specialty Start Date End Date Jesus Cintron MD [address] [place] [address] [place] [id number] PCP - General
--- OUTSIDE RECORDS SUMMARY | 2024-09-09 11:54 | XMS_ITS ---
Author Organization [facility] Address [address] [facility] [facility] [address] [place] [address] Care Team Providers Care Economic Research Analyst Name Role Phone JESUS CINTRON Primary Care [...] Yes Encounters Encounter Location Date Provider Diagnosis [address] [place] [address] 05/11/2023 JESUS CINTRON Plan Of Treatment No Information Progress Notes * Sha LORENZANAioDOB:1960 (63 yo M)Acc No.[id number]:05/11/2023 Progress Notes Patient:?Jacoby LORENZANA Provider:?Jesus Cintron MD :1960???Age:62 Y???Sex:Male Kei e:05/11/2023 Address:[address] [place] [address] , [place] Subjective: * Chief Complaints: * ???1. FOLLOW [...] smoking?Are you an other tobacco user??Yes ???Social_Migrated:?SocialHx: [place] Language PortugueseNative Language EnglishOccupation:Marital History - Currently [...] Electronic signature of YARELI CINTRON MD on 09/09/2024 at 11:53 AM EST Sign off status: Pending * Provider:?Jesus Cintron MD Date:?2022 Generated for Bry ceja/Lexi/Edwinsmitting on:?09/09/2024 11:53 AM EST
--- OUTSIDE RECORDS SUMMARY | 2024-09-09 11:54 | XMS_ITS ---
Author Organization [facility] Address [address] [facility] [address] [place] [address] Care Team Providers Care Maintenance Mechanic Technician Name Role Phone JUAN BUSH Primary Care Provider REASON FOR VISIT refill Medications Medication SIG (Take, Route, Frequency, Duration) Notes Start Date End Date Status Losartan Potassium 50 MG 1 tablet Orally Once a day for 90 days Active Encounters Encounter Location Date Provider Diagnosis [facility] [address] [facility] [address] [place] [address] 03/21/2023 JUAN BUSH Plan Of Treatment Medication Medication Name Sig Start Date Stop Date Notes Losartan Potassium 50 MG 1 tablet Orally Once a day for 90 days Progress Notes * Sha LORENZANALibbyOB:1960 (62 yo M)Acc No.[id number]:03/21/2023 Patient:?Jacoby Lorenzana :1960???Age:62 Y???Sex:Male Address:[address], [place], [address] * Refills? Refill Losartan Potassium Tablet, 50 MG, Orally, 90 Tablet, 1 tablet, Once a day, 90 days, Refills=1 * true * Date:? Generated for Bry ceja/Lexi/eToliversmitting on:?09/09/2024 11:53 AM EST
--- OUTSIDE RECORDS SUMMARY | 2024-09-09 11:54 | XMS_ITS | Continuity of Care Document ---
Author Organization [facility] Address [address] [place] [address]- Care Team Providers Care Dictaphone Typist Name Role Phone Abdulaziz ZAPATA, Jesus Primary Care Physician Encounter [facility] NBR [id number] Date(s): 08/01/24 - 08/31/24 [facility] [address] [place], [place] [address] Encounter Type: Triage Allergies, Adverse Reactions, Alerts No Known Allergies Medications Cialis 5 mg oral tablet 1 tablet = 5 mg, By Mouth, Daily, at the same time every day for ED/BPH, # 90 tablet, 1 Refills, Maintenance, 09/16/24 7:28:00 AM EDT, Tablet, [facility], Partial fill upon patient request ifthe prescription is for a schedule II opioid drug., 165, cm, 08/28/24 11:35:00 EST, Height, 72.5, kg, 07/24/24 14:38:00 EST, Dry Weight Start Date: 09/16/24 Stop Date: 03/15/25 Status: Ordered Quantity: 90.0 Unit: tablet Repeat number: 2 Indication: Benign prostatic hyperplasia with lower urinary tract symptoms Cialis 5 mg oral tablet 1 tablet = 5 mg, By Mouth, Daily, for 90 days, at the same time every day for ED/BPH, # 90 tablet, 0 Refills, Hard Stop 09/16/24 7:28:00 AM EDT, 06/18/24 7:28:00 AM EST, Tablet, [facility], Partial fill upon patient request if the prescription is for a schedule II opioid drug., 165, cm, 06/17/24 13:58:00 EST, Height Start Date: 06/18/24 Stop Date: 09/16/24 Status: Ordered Quantity: 90.0 Unit: tablet Repeat number: 1 Indication: Benign prostatic hyperplasia with lower urinary tract symptoms losartan 50 mg oral tablet 1 tablet = 50 mg, By Mouth, Daily, # 90 tablet, 1 Refills, Maintenance, 08/28/24 11:44:00 AM EST, Tablet, [facility], Partial fill upon patient request if the prescription is for a schedule II opioid drug., 165, cm, 08/28/24 11:35:00 EST, Height, 72.5, kg, 07/24/24 14:38:00 EST, Dry Weight Start Date: 08/28/24 Stop Date: 02/24/25 Status: Ordered Quantity: 90.0 Unit: tablet Repeat number: 2 methylphenidate 5 mg oral tablet 5 mg, 1, tablet, By Mouth, 3 times a day, # 180 tablet, Refills 0, Tot. Refills 0, Maintenance, 08/28/24 11:45:00 AM EST, Route to Pharmacy Electronically, [facility], Partial fill upon patient request if the prescription is for a schedule II opioid drug., 165, cm, 08/28/24 11:35:00 EST, Height, 72.5, kg, 07/24/24 14:38:00 EST, Dry Weight Start Date: 08/28/24 Stop Date: 10/27/24 Status: Ordered Quantity: 180.0 Unit: tablet Repeat number: 1 Indication: Attention-deficit hyperactivity disorder, unspecified type Problem List Condition Confirmation Course Effective Dates [...] cause of diseases classified elsewhere Confirmed Active HLD (hyperlipidemia) Confirmed Active HTN (hypertension) Confirmed Active IBS (irritable bowel syndrome) Confirmed [...] Active Social History Social History Type Response Smoking Status Former smoker, quit more than 30 days ago; Other: socially; entered on: 06/17/24 Sex Sex Representation Male (finding) Patient Care team information Care Team Personnel Name: Jesus Cintron MD Position: [facility] Physician - Primary Care Member Role: PCP Address: [address] [place] [id number] [place] [employer]: Name: Iza Mack Position: [facility] PCO Associate Professional Member Role: [employer] Consult[employer] Provider Address: [address] [place] [address] Telecom: Care Team Related Persons Name: SHARIF ARMAS Insurance Providers Guarantor name: ANAND [employer] Plan Information #: 1 Payer: SAW: [employer] EXAM Member Number: NA Policy Number: NA Group Number: NA
--- OUTSIDE RECORDS SUMMARY | 2024-09-09 11:54 | XMS_ITS | Continuity of Care Document ---
Author Organization [facility] Address [address] [facility] [address]- Care Team Providers Care Dental Prosthetist Name Role Phone Jesus Cintron MD Primary Care Physician Encounter [facility] [place](s): 07/25/24 - 08/24/24 [facility] [address] [place] [id number] Encounter Type: Triage Allergies, Adverse Reactions, Alerts No Known Allergies Medications Cialis 5 mg oral tablet 1 tablet = 5 mg, By Mouth, Daily, at the same time every day for ED/BPH, # 90 tablet, 0 Refills, Maintenance, 06/18/24 7:28:00 AM EST, Tablet, [facility], Partial fill upon patient [...] Refills, Maintenance, 05/17/24 6:34:00 PM EST, Tablet, [facility], [...] 8:51:00 AM EDT, Route to Pharmacy Electronically, [facility], Partial fill upon patientrequest [...] Team Personnel Name: Jesus Cintron MD Position: [facility] Physician - Primary Care Member Role: PCP Address: [address] [place] [address] [place] [address] Telecom: Name: Iza Mack Position: [facility] PCO Associate Professional Member Role: Lifetime Consulting Provider Address: [address] [place] [phone]- Telecom: Care Team Related Persons Name: SHARIF ARMAS Insurance Providers Guarantor name: NA Health Plan Information #: 1 Payer: [facility] FF NON P HMO Member Number: NA Policy Number: NA Group Number: NA
== END 2024-09-09 11:08 | disposition home or self-care (01) ==
PROVIDERS: PCP Internal Medicine; Visit Provider Nurse Practitioner Family
DX: K21.9 Gastro-esophageal reflux disease without esophagitis (principal); K57.90 Diverticulosis of intestine, part unspecified, without perforation or abscess without bleeding; Z83.79 Family history of other diseases of the digestive system; K52.9 Noninfective gastroenteritis and colitis, unspecified; R10.13 Epigastric pain
CPT/HCPCS: 99213

== ENCOUNTER → 2024-09-09 10:18 | Outpatient (BNVA) | payer OTHER, SELFPAY | PROVIDERS: PCP Internal Medicine; Visit Provider Nurse Practitioner Family ==